=== PATIENT | male | born 1975 | race African-American/Black ===

== ENCOUNTER 2020-09-13 08:20 | Emergency (ER) | payer OTHER ==
[~2020-09-13] VITALS: Ht 180.3 cm; Wt 105.0 kg
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
[2020-09-13 08:30] VITALS: BP 167/109
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
== END 2020-09-13 09:25 | disposition home or self-care (01) ==
LOC: ER 08:20
DX: S60.222A Contusion of left hand, initial encounter (principal); V49.49XA Driver injured in collision with other motor vehicles in traffic accident, initial encounter; Y92.488 Other paved roadways as the place of occurrence of the external cause; Y93.89 Activity, other specified; Y99.8 Other external cause status
CPT/HCPCS: 73130; 99283